=== PATIENT | female | born 1960 | race Caucasian/White ===

== ENCOUNTER → 2020-03-11 17:51 | Outpatient (CLI) | payer OTHER, SELFPAY ==
--- NOTE | ~2020-03-11 | DEXA_ITS ---
Bone Density Report Name: Chery Flores Age: 59 Sex: Female Ethnicity: White Date of : 1960 Indication: postmenopausal; screening for osteoporosis; height loss; Referring Provider: SIRISHA MENDEZ Study: Bone densitometry was performed. Exam Date: March 11, 2020 Accession number: [id number] Bone Density: Region BMD T-score Z-score Classification AP Spine (L1-L4) 1.407 3.3 4.8 Normal Femoral Neck (Left) 0.848 0.0 1.3 Normal Total Hip (Left) 1.041 0.8 1.8 Normal Femoral Neck (Right) 0.837 -0.1 1.2 Normal Total Hip (Right) 1.078 1.1 2.1 Normal Total Hip Mean 1.060 1.0 2.0 Normal World Health Organization criteria for BMD impression classify patients as: Normal (T-score at or above -1.0), Osteopenia (T-score between -1.0 and -2.5), or Osteoporosis (T-score at or below -2.5). 10-year Fracture Risk: FRAX not reported because: All T-scores for Spine Total, Hip Total, Femoral Neck at or above -1.0 Clinical Information Provided by Patient: Has 3 or more alcoholic drinks per day Has used the following medications: Vitamin D, Calcium, MTV, LEVOTHYROXINE Patient maximum height was 64.25 Menopause Age: 46 No regular weight bearing exercise Drinks caffeinated beverages Onset of menses at age 14 Number of children 0 Impression: The patient has normal bone mass. The patient has risk factors, including: excessive alcohol use. Discussion: BONE DENSITY IS ABOVE THE MINIMUM DESIRABLE LEVEL AT ALL SKELETAL SITES TESTED. This patient?s bone mineral density is above the minimum desirable level (T-score -1.0 or better) at all sites measured. The patient should follow a healthful lifestyle (good nutrition with adequate calcium and vitamin D, and appropriate weight-bearing exercise). Follow-Up: Consider repeating this study in 5 years or sooner if there is some new clinical indication. Reported by: LESLEE on 03/11/2020 6:42:00 PM. Reviewed, dictated and finalized at location AVerna SUMMERS
== END ==
PROVIDERS: PCP Family Medicine; Visit Provider Family Medicine
DX: Z78.0 Asymptomatic menopausal state (principal)
CPT/HCPCS: 77080

== ENCOUNTER 2021-04-07 17:37 | Emergency (ER) | payer OTHER, SELFPAY ==
--- NOTE | ~2021-04-07 | XR_ITS ---
EXAMINATION: XR chest 1V portable EXAM DATE: 04/07/2021 20:38 INDICATION: Cough, transient alteration of awareness. TECHNIQUE: Portable AP frontal chest x-ray was obtained. There is no prior study for comparison. FINDINGS: The lungs are clear. There are no pleural effusions. The cardiomediastinal silhouette is within normal limits. There is no pneumothorax suspected. The bones and soft tissues are unremarkab le. IMPRESSION: No acute cardiopulmonary findings. Reviewed, dictated and finalized at location A. CTOR OF SEARCH ENGINE MARKETING
[2021-04-07 17:41] VITALS: BP 161/88; PULSE 92; RESP 14; TEMP 36.6; O2SAT 97
[2021-04-07 17:49] VITALS: BP 146/97; PULSE 95; RESP 18
--- NOTE | 2021-04-07 18:20 | ED.PSYCH ---
HPI - Psych General Chief Complaint: Psychiatric Symptoms Stated Complaint: psych Time Seen by Provider: 04/07/21 17:59 Source: patient Mode of arrival: ambulatory Limitations: clinical condition History of Present Illness HPI Narrative: Patient is a 60-year-old female brought in by a friend due to manic episodes that started 1 week ago. Patient has a history of bipolar, on 4 medications, and states that she has been taking them regularly. Patient denies any auditory visual hallucinations. Patient denies any suicidal homicidal thoughts. Patient states that she has an appointment next week to see her psychiatrist Dr. Antunez. Related Data Home Medications Medication Instructions Recorded Confirmed clonazepam 1 mg PO HS 04/07/21 04/07/21 divalproex 500 mg PO BID 04/07/21 04/07/21 levothyroxine 25 mcg PO DAILY 04/07/21 04/07/21 risperidone 1 mg PO BID 04/07/21 04/07/21 Allergies Allergy/AdvReac Type Severity Reaction Status Date / Time No Known Allergies Allergy Verified 04/07/21 19:44 Review of Systems Review of Systems: All systems reviewed & are unremarkable except as noted in HPI and below Constitutional: Constitutional: Denies body ache(s), Denies chills, Denies excessive sweating, Denies fatigue, Denies fever(s), Denies headache(s), Denies lethargy, Denies malaise, Denies weakness and Denies weight loss Eyes: Eyes: Denies blurry vision, Denies change in vision and Denies loss of vision ENT: Denies dizziness, Denies ear discharge, Denies headache(s), Denies lip swelling, Denies epistaxis, Denies nasal congestion, Denies neck pain, Denies throat swelling and Denies tongue swelling Cardiovascular: Cardiovascular: Denies chest pain, Denies chest pain at rest, Denies chest pain with activity, Denies diaphoresis, Denies rapid heart rate, Denies edema, Denies irregular heart rhythm, Denies lightheadedness, Denies palpitations, Denies dyspnea and Denies dyspnea on exertion Respiratory: Respiratory: Denies chest congestion, Denies cough, Denies hemoptysis, Denies dyspnea and Denies dyspnea on exertion Gastrointestinal: Gastrointestinal: Denies abdominal pain, Denies melena, Denies hematochezia, Denies diarrhea, Denies nausea, Denies vomiting and Denies hematemesis Musculoskeletal: Musculoskeletal: Denies abnormal gait, Denies deformity, Denies joint swelling, Denies limited range of motion, Denies neck pain and Denies numbness Neurologic: Denies Abnormal speech present, Denies abnormal gait, Denies confusion, Denies dizziness, Denies headache(s), Denies focal weakness, Denies loss of vision, Denies numbness, Denies Other visual disturbances, Denies Sensory deficit (Neuro) and Denies weakness Psychiatric: Psychiatric: Denies confusion, Denies depression, Denies auditory hallucinations, Denies homicidal ideation and Denies suicidal ideation Endocrine: Endocrine: Denies cold intolerance, Denies excessive sweating, Denies fatigue, Denies heat intolerance and Denies palpitations Hematologic/Lymphatic: Hematologic/Lymphatic: Denies easy bleeding and Denies easy bruising Allergic/Immunologic: Allergic/Immunologic: Denies lip swelling, Denies throat swelling and Denies tongue swelling PMFSH Past Medical History Medical History Bipolar 1 disorder Cat scratch of right lower leg Cellulitis of leg without foot, right Chronic kidney disease (CKD) stage G3a/A1, moderately decreased glomerular filtration rate (GFR) between 45-59 mL/min/1.73 square meter and albuminuria creatinine ratio less than 30 mg/g Hyperlipidemia Hypothyroidism (acquired) Lateral epicondylitis of right elbow Low back pain Family History Family History Sibling Breast cancer Grandparent Breast cancer Father Thyroid ca Social History Social History Social History: Single Smoking status: Nev
[2021-04-07 18:27] LABS: Hematocrit 37.8 % (37.0-47.0); Hemoglobin 12.2 g/dL (12.0-15.0); Mean Corpuscular HGB Conc 32.3 g/dl (32-36); Mean Corpuscular Volume 93.1 fl (80-100); Mean Platelet Volume 9.8 fl (7.4-10.4); Platelet Count Result 203 k/mm3 (150-375); Red Blood Count 4.06 M/mm3 (4.2-5.4); Red Cell Distribution Width 12.8 % (11.5-14.5); White Blood Count 23.1 K/mm3 (4.5-10.0)
[2021-04-07] MEDS: OLANZapine 10 MG INJ VIAL IM (18:37)
[2021-04-07 18:38] LABS: Anion Gap 8 mmol/L (8-16); Blood Urea Nitrogen 23 mg/dL (7-17); Calcium 9.6 mg/dL (8.4-10.2); Carbon Dioxide 30 mmol/L (22-30); Chloride 101 mmol/L (98-107); Estimated Glomerular Filt Rate > 60; Glucose 90 mg/dL (65-110); Potassium 3.6 mmol/L (3.4-5.0); Sodium 139 mmol/L (137-145)
[2021-04-07] MEDS: WATER, STERILE FOR INJECTION 10 ML VIAL XX (18:38)
[2021-04-07] MEDS: diphenhydrAMINE HCl INJ 50 MG/ML VIAL 25 MG IM (18:38)
[2021-04-07 19:08] LABS: Add Urine Microscopic? NO; Appearance Urine Clear (Clear); Bilirubin Urine Negative (Negative); Blood Urine Negative (Negative); Color Urine Yellow (Yellow); Glucose Urine UA Negative (Negative); Ketones Urine Negative (Negative); Leukocyte Esterase Ur Negative LEU/UL (Negative); Nitrate Urine Negative (Negative); Protein Urine Negative (Negative); Specific Grav Ur 1.012 (1.001-1.035); Urobilinogen Urine Negative mg/dL (<2.0)
[2021-04-07 19:12] LABS: Acetaminophen < 10 ug/mL (10-30); Ethanol < 10 mg/dL (<10); Salicylate < 1.0 mg/dL (2-20)
[2021-04-07 19:14] LABS: Band Neutrophils Percent 0 % (0-6); Neutrophils Absolute Manual 6.46 K/mm3 (1.7-7.2); Neutrophils Percent Manual 28 % (46-73); Total Cells Counted 100
[2021-04-07 19:15] LABS: Basophils Percent Manual 0 % (0-1); Eosinophils Percent Manual 0 % (0-4); Lymphocytes Absolute Manual 15.47 K/mm3 (1.1-4.5); Lymphocytes Percent Manual 67 % (18-44); Metamyelocytes Percent 0 %; Monocytes Absolute Manual 1.15 K/mm3 (0.1-0.90); Monocytes Percent Manual 5 % (3-9); Myelocytes Percent 0 %; Platelet Estimate Adequate (Adequate); Promyelocytes Percent 0 %
[2021-04-07 19:40] VITALS: BP 136/84; PULSE 80; RESP 16; O2SAT 99
[2021-04-07 20:12] LABS: Amphetamine Screen Urine Negative (Negative); Barbiturate Screen Urine Negative (Negative); Benzodiazepines Screen Urine Negative (Negative); Cannabinoid Screen Urine Positive (Negative); Cocaine Screen Urine Negative (Negative); Methadone Screen Urine Negative (Negative); Opiate Screen Urine Negative (Negative); Phencyclidine Screen Urine Negative (Negative)
[2021-04-07 21:30] VITALS: BP 148/90; PULSE 94; RESP 18; O2SAT 99
[2021-04-07] MEDS: LORazepam (*CRX) 1 MG TABLET PO (21:30)
[2021-04-08 09:10] LABS: SARS-CoV-2 RNA PCR Negative
== END 2021-04-08 04:41 | disposition home or self-care (01) ==
PROVIDERS: Emergency Provider Emergency Medicine; PCP Family Medicine
DX: F31.9 Bipolar disorder, unspecified (principal); Z20.822 Contact with and (suspected) exposure to COVID-19; N18.31 Chronic kidney disease, stage 3a; E78.5 Hyperlipidemia, unspecified; E03.9 Hypothyroidism, unspecified
CPT/HCPCS: 36415; 71045; 80048; 80307; 81003; 84443; 85025; 96372; 99284; A9270; C9803; J1200; U0003; U0005

== ENCOUNTER → 2022-03-20 12:33 | Outpatient (CLI) | payer OTHER, SELFPAY ==
--- NOTE | ~2022-03-20 | MM_ITS ---
EXAMINATION: MM screening rachael BI w anat HISTORY: Screening TECHNIQUE: Craniocaudal and mediolateral oblique 3-D tomosynthesis images were obtained and synthetic 2-D images were generated. CAD analysis was submitted and interpreted. COMPARISON: No prior mammogram is available for comparison at this institution. BREAST PARENCHYMAL COMPOSITION: There are scattered areas of fibroglandular density. FINDINGS: There is no evidence of suspicious mass, calcification, or architectural distortion to sugg est malignancy in either breast. There has been no suspicious interval change. IMPRESSION: 1. No mammographic evidence of malignancy. 2. Recommend routine screening mammography in one year. BI-RADS Category 1: Negative Reviewed, dictated and finalized at location A. MIXER MACHINE
== END ==
PROVIDERS: PCP Family Medicine; Visit Provider Physician Assistant
DX: Z12.31 Encounter for screening mammogram for malignant neoplasm of breast (principal)
CPT/HCPCS: 77063; 77067

== ENCOUNTER → 2022-04-24 12:53 | Outpatient (CLI) | payer OTHER, SELFPAY ==
--- NOTE | ~2022-04-24 | US_ITS ---
EXAMINATION: US abdomen complete DATE: 04/24/2022 14:14 INDICATION: R74.8 - Abnormal levels of other serum enzymes TECHNIQUE: Multiple grayscale and Doppler ultrasound images of the abdomen were obtained. COMPARISON: Pelvic ultrasound, same date. FINDINGS: The visualized portions of the pancreas are normal. The liver is normal with normal echogen icity and echotexture. No surface nodularity. Normal hepatopetal flow in the main portal vein. The ga llbladder is normal with no abnormal wall thickening, pericholecystic fluid or stones. The common alonzo e duct measures 3 mm. There was no sonographic Garcia sign. The visualized portions of the aorta and inferior vena cava are normal. The right kidney measures 9.8 x 4.2 x 5.3. The left kidney measures 7.5 x 3.7 x 3.5. The kidneys demo nstrate normal parenchymal echogenicity. There is no hydronephrosis. The spleen is normal in appearan ce and measures 10.7 cm. Incidental note of a circumscribed large cystic and minimally septated rough ly midline lower abdominal mass, likely corresponding to the palpable abnormality, possibly ovarian i n origin, measuring at least 14.6 cm. IMPRESSION: Normal abdominal ultrasound findings. Incidental 14.6 cm cystic pelvic mass. [facility]. Reviewed, dictated and finalized at location K. OVEN TENDER IMPRESSION: Normal abdominal ultrasound findings. Incidental 14.6 cm cystic pelvic mass. Pl ease refer to the concurrent pelvic ultrasound report for additional detail.
--- NOTE | ~2022-04-24 | US_ITS ---
EXAMINATION: US pelvic complete DATE: 04/24/2022 14:14 INDICATION: Pelvic mass felt on exam, history of leukemia, currently in remission. TECHNIQUE: Multiple transabdominal and endovaginal sonographic images of the pelvis were obtained. COMPARISON: Ultrasound abdomen, same date. FINDINGS: Uterus: 6.1 x 3.1 x 4.5 cm. Endometrial complex measures mm. Right Ovary: Smoothly marginated, multilocular 13.5 x 9.3 x 13.9 cm right adnexal mass with irregular thick septum, solid components measuring up to 3.3 cm, color score 2, no internal projections. A lar elizabeth overall measurement of 14.6 cm was obtained in the concurrent abdominal ultrasound and that value will be used for overall size. Left Ovary: Not visualized, no left adnexal abnormality detected. There is no free fluid in the pelvis. IMPRESSION: 14.6 cm right adnexal mass, presumably ovarian in origin, high risk (ORADS 5), recommend Gynecology-O ncology referral. Left ovary not visualized. Reviewed, dictated and finalized at location K. ET FILLER IMPRESSION: 14.6 cm right adnexal mass, presumably ovarian in origin, high risk (ORADS 5), recommend Gynecology-Oncology referral. Left ovary not visualized.
== END ==
PROVIDERS: PCP Family Medicine; Visit Provider Nurse Practitioner Gerontology
DX: R74.8 Abnormal levels of other serum enzymes (principal); R19.00 Intra-abdominal and pelvic swelling, mass and lump, unspecified site
CPT/HCPCS: 76700; 76856

== ENCOUNTER 2022-06-19 00:56 | Day surgery (SDC) | payer OTHER, SELFPAY ==
[2022-06-07 12:57] VITALS: BMI 29.2
[2022-06-19 11:47] VITALS: BP 149/80; PULSE 67; RESP 18; TEMP 36.2; O2SAT 99
[2022-06-19] MEDS: LACTATED RINGERS 1,000 ML 150 ML IV CONT (12:00)
--- NOTE | 2022-06-19 12:08 | WPDANESEPPF ---
Anes - Initial Pre Proc Eval Procedure: Operation Date: 06/19/22 13:00 Proposed Procedures p Colonoscopy - Marcelino Membreno MD Date/Time: 06/19/22 12:08 Surgeon: Marcelino Membreno MD Pre Op Diagnosis: diarrhea Patient Data Age: 61 Gender: F Height: 1.57 m Weight: 72.8 kg Last Vital Signs Temp 97.1 F L 06/19/22 11:47 Pulse 67 06/19/22 11:47 Resp 18 06/19/22 11:47 BP 149/80 H 06/19/22 11:47 Pulse Ox 99 06/19/22 11:47 O2 Del Method Room Air 06/19/22 11:47 Allergies Allergy/AdvReac Type Severity Reaction Status Date / Time No Known Allergies Allergy Verified 06/19/22 11:45 Home Medications Medication Instructions Recorded Confirmed Type clonazepam 1 mg tablet 1 mg PO HS 04/07/21 06/19/22 History divalproex 500 mg tablet,extended 500 mg PO BID 04/07/21 06/19/22 History release 24 hr (Depakote ER) risperidone 1 mg tablet (Risperdal) 1 mg PO BID 04/07/21 06/19/22 History levothyroxine 25 mcg tablet 25 mcg PO DAILY #90 tabs 12/26/21 06/19/22 Rx Patient hx anesthesia problems: none Family hx anesthesia problems: none Results Review: All pre-operative results and documents have been reviewed as part of the pre-operative evaluation. [facility] Past Medical History Medical History Bipolar 1 disorder Cat scratch of right lower leg Cellulitis of leg without foot, right Chronic kidney disease (CKD) stage G3a/A1, moderately decreased glomerular filtration rate (GFR) between 45-59 mL/min/1.73 square meter and albuminuria creatinine ratio less than 30 mg/g Hyperlipidemia Hypothyroidism (acquired) Lateral epicondylitis of right elbow Low back pain Family History Family History Sibling Breast cancer Grandparent Breast cancer Father Thyroid ca Social History Social History Social History: Boyfriend Smoking status: Former smoker Tobacco type: cigarettes Second hand tobacco smoke exposure: No Alcohol intake: current Alcohol use details: Occasionally Substance use: never Substance use type: does not use Living arrangements: with family Additional living arrangements comments: pt lives with significant other Occupation/Education: occupation Additional occupation/education comments: 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 Gender identity (if verbalized by the patient): Female Sexual Orientation (if Verbalized by the Patient): Straight or Heterosexual Anes - Eval Final PreProcedure Day of Procedure 06/19/22 12:08 Patient weight: normal Heart: regular rate and rhythm Lungs: clear to auscultation Airway: Mallampati scale class II Neurological: alert and oriented Last oral intake: >/= 8 hours ASA classification: II Emergent: no Anesthetic plan: proceed Anesthesia type and monitoring: general GIVS and standard monitoring Results Review: All pre-operative results and documents have been reviewed as part of the pre-operative evaluation. Informed Consent: The patient's anesthetic plan and its attendant risks and benefits were discussed with the patient/family/POA. Questions were solicited and answers provided to the satisfaction of the patient/family/POA.
--- NOTE | 2022-06-19 12:47 | PM.HPGS ---
History of Present Illness History of Present Illness Consent: Risks, benefits, and alternatives have been discussed and questions answered. Patient agrees to proceed with procedure. Chief complaint: diarrhea Narrative: Chery Flores is a 61 year old female here for screening colonoscopy, last one over 10 years ago Review of Systems Constitutional: Constitutional: Denies headache(s) and Denies weakness Eyes: Eyes: Denies blurry vision ENT: Reports Normal hearing present, Denies headache(s) and Denies neck pain Cardiovascular: Cardiovascular: Denies chest pain and Denies dyspnea Respiratory: Respiratory: Denies dyspnea Gastrointestinal: Gastrointestinal: Reports no additional gastrointestinal complaints Genitourinary: Genitourinary: Denies dysuria Musculoskeletal: Musculoskeletal: Denies neck pain Integumentary/Breasts: Skin/Breast: Denies dry skin Neurologic: Reports Normal hearing present, Denies headache(s) and Denies weakness Psychiatric: Psychiatric: Denies anxiety Endocrine: Endocrine: Denies change in body appearance Hematologic/Lymphatic: Hematologic/Lymphatic: Denies easy bleeding Allergic/Immunologic: Allergic/Immunologic: Denies urticaria PMFSH Past Medical History Medical History (Updated 06/19/22 @ 12:59 by Marcelino Membreno MD) Bipolar 1 disorder Cat scratch of right lower leg Cellulitis of leg without foot, right Chronic kidney disease (CKD) stage G3a/A1, moderately decreased glomerular filtration rate (GFR) between 45-59 mL/min/1.73 square meter and albuminuria creatinine ratio less than 30 mg/g Colon cancer screening Hyperlipidemia Hypothyroidism (acquired) Lateral epicondylitis of right elbow Low back pain Family History Family History Sibling Breast cancer Grandparent Breast cancer Father Thyroid ca Social History Social History Social History: Boyfriend Smoking status: Former smoker Tobacco type: cigarettes Second hand tobacco smoke exposure: No Alcohol intake: current Alcohol use details: Occasionally Substance use: never Substance use type: does not use Living arrangements: with family Additional living arrangements comments: pt lives with significant other Occupation/Education: occupation Additional occupation/education comments: 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 Gender identity (if verbalized by the patient): Female Sexual Orientation (if Verbalized by the Patient): Straight or Heterosexual Meds Home Medications and Allergies Home Medications Medication Instructions Recorded Confirmed Type clonazepam 1 mg tablet 1 mg PO HS 04/07/21 06/19/22 History divalproex 500 mg tablet,extended 500 mg PO BID 04/07/21 06/19/22 History release 24 hr (Depakote ER) risperidone 1 mg tablet (Risperdal) 1 mg PO BID 04/07/21 06/19/22 History levothyroxine 25 mcg tablet 25 mcg PO DAILY #90 tabs 12/26/21 06/19/22 Rx Allergies Allergy/AdvReac Type Severity Reaction Status Date / Time No Known Allergies Allergy Verified 06/19/22 11:45 Vital Signs Vital Signs - 24 hr 06/19/22 11:47 Temperature 97.1 F L Pulse Rate 67 Respiratory Rate 18 Blood Pressure 149/80 H Pulse Oximetry 99 Oxygen Delivery Room Air Exam Const: General: comfortable and no acute distress HENMT: Face/Nose/Sinus: Normal nares present Eyes: General: appearance normal, both eyes and all related structures Neck: Neck: no JVD Resp: Auscultation: clear to auscultation bilaterally Cardio: Rate: regular rate Rhythm: regular rhythm GI: Inspection: non-distended GI Palp: Yes Soft to palpation Skin: General skin exam: normal color Neuro: General: gait normal Speech: normal speech Extrem: General: normal to inspection Psych: Mental Status: mental status grossly normal Assessment and Plan Assessment and plan (1) Colon cancer nj
[2022-06-19 13:03] VITALS: BP 109/72; PULSE 60; RESP 16; O2SAT 99
[2022-06-19 13:13] VITALS: BP 126/80; PULSE 58; RESP 18; O2SAT 99
[2022-06-19 13:23] VITALS: BP 135/64; PULSE 56; RESP 16; O2SAT 100
== END 2022-06-19 13:32 | disposition home or self-care (01) ==
PROVIDERS: PCP Family Medicine; Visit Provider Internal Medicine Gastroenterology
PROC: 0DJD8ZZ Inspection of Lower Intestinal Tract, Via Natural or Artificial Opening Endoscopic (ICD-10-PCS; CPT 45378; principal; 2022-06-19 13:00)
DX: Z12.11 Encounter for screening for malignant neoplasm of colon (principal); K57.30 Diverticulosis of large intestine without perforation or abscess without bleeding; K64.8 Other hemorrhoids; N18.31 Chronic kidney disease, stage 3a; E78.5 Hyperlipidemia, unspecified; E03.9 Hypothyroidism, unspecified; F31.9 Bipolar disorder, unspecified; Z87.891 Personal history of nicotine dependence
CPT/HCPCS: 45378; J2704; J7120

== ENCOUNTER → 2023-04-23 11:51 | Outpatient (CLI) | payer OTHER, SELFPAY ==
--- NOTE | ~2023-04-23 | MM_ITS ---
EXAMINATION: MM screening rachael BI w anat HISTORY: Screening mammogram, family history of breast cancer in her sister. TECHNIQUE: Craniocaudal and mediolateral oblique 3-D tomosynthesis images were obtained and synthetic 2-D images were generated. CAD analysis was submitted and interpreted. COMPARISON: 03/20/2022 BREAST PARENCHYMAL COMPOSITION: There are scattered areas of fibroglandular density. FINDINGS: No suspicious mass, calcification, or architectural distortion are identified in either alvaro ast to suggest malignancy. There has been no suspicious interval change. IMPRESSION: 1. No mammographic evidence of malignancy. 2. Recommend routine screening mammography in one year. BI-RADS Category 1: Negative Reviewed, dictated and finalized at location A. N RESOURCES TRAINEE
== END ==
PROVIDERS: PCP Physician Assistant; Visit Provider Physician Assistant
DX: Z12.31 Encounter for screening mammogram for malignant neoplasm of breast (principal)
CPT/HCPCS: 77063; 77067

== ENCOUNTER 2024-04-25 11:24 | Outpatient (CLI) | payer MEDICARE, SELFPAY ==
--- NOTE | ~2024-04-25 | MM_ITS ---
EXAMINATION: MM screening rachael BI w anat HISTORY: Screening mammogram, family history of breast cancer in her sister. TECHNIQUE: Craniocaudal and mediolateral oblique 3-D tomosynthesis images were obtained and synthetic 2-D images were generated. CAD analysis was submitted and interpreted. COMPARISON: 04/23/2023, 03/20/2022 BREAST PARENCHYMAL COMPOSITION:Not Dense. There are scattered areas of fibroglandular density. FINDINGS: There is more conspicuous masses or possibly lymph node at the outer, slightly upper left b reast. Otherwise, no interval change. No suspicious parenchymal abnormality of the right breast. No s uspicious mammographic calcifications. IMPRESSION: More conspicuous group masses or possibly lymph node at the outer, slightly upper left breast. Spot c ompression views and ultrasound are recommended for further evaluation. BI-RADS Category 0: Incomplete: Needs additional imaging evaluation. Reviewed, dictated and finalized at location . BODY TECHNICIAN IMPRESSION: More conspicuous group masses or possibly lymph node at the outer, slightly upp er left breast. Spot compression views and ultrasound are recommended for furth er evaluation. BI-RADS Category 0: Incomplete: Needs additional imaging evaluation.
== END 2024-04-25 11:25 | disposition home or self-care (01) ==
PROVIDERS: PCP Physician Assistant; Visit Provider Physician Assistant
DX: Z12.31 Encounter for screening mammogram for malignant neoplasm of breast (principal); R92.8 Other abnormal and inconclusive findings on diagnostic imaging of breast
CPT/HCPCS: 77063; 77067

== ENCOUNTER 2024-05-02 07:49 | Outpatient (CLI) | payer MEDICARE, SELFPAY ==
--- NOTE | ~2024-05-02 | MMUS_ITS ---
EXAMINATION: US breast LT limited, MM diagnostic rachael LT w anat HISTORY: Follow-up left breast masses TECHNIQUE: Additional 3-D tomosynthesis images of the left breast were performed and synthetic 2-D im ages were generated. CAD analysis was submitted and interpreted. High resolution Limited left breast ultrasound was performed. COMPARISON: Comparison to multiple prior studies sequentially, with oldest reviewed study dated 03/02. BREAST PARENCHYMAL COMPOSITION: Not dense: There are scattered areas of fibroglandular density. FINDINGS: MAMMOGRAPHIC FINDINGS: There is a cluster of small masses in the upper outer quadrant of the left breast, middle third. Ther e are no suspicious calcifications or architectural distortion. ULTRASOUND: Complete US of all 4 quadrants of the breast/s and retroareolar region was reviewed. There is a clust er of cysts at 2:00, 6 cm from the nipple, largest measuring 5 mm. No suspicious masses to suggest ma lignancy. IMPRESSION: 1. In the area of mammographic concern there is a cluster of small cysts measuring 5 mm or less. No e vidence for malignancy in the left breast. 2. Routine yearly screening mammogram and regular clinical breast examination are recommended. BI-RADS Category 2: Benign finding(s). Reviewed, dictated and finalized at location A. INGS MAN IMPRESSION: 1. In the area of mammographic concern there is a cluster of small cysts measur ing 5 mm or less. No evidence for malignancy in the left breast. 2. Routine yearly screening mammogram and regular clinical breast examination a re recommended. BI-RADS Category 2: Benign finding(s).
== END 2024-05-02 07:50 | disposition home or self-care (01) ==
LOC: MICIMG 07:49
PROVIDERS: PCP Physician Assistant; Visit Provider Student in an Organized Health Care Education/Training Program
DX: R92.8 Other abnormal and inconclusive findings on diagnostic imaging of breast (principal)
CPT/HCPCS: 76642; 77061; 77065; G0279

== ENCOUNTER 2025-02-13 08:25 | Outpatient (CLI) | payer MEDICARE, MEDICAID, SELFPAY ==
--- NOTE | ~2025-02-13 | DEXA_ITS ---
Bone Density Report Name: BEL LANCASTER Age: 64 Sex: Female Ethnicity: White Date of : 1960 Indication: postmenopausal; screening for osteoporosis; height loss; cancer; hysterectomy; Referring Provider: SARAH CONNELL Study: Bone densitometry was performed. Exam Date: February 13, 2025 Accession number: [id number] Bone Density: Region BMD T-score Z-score Classification AP Spine(L1-L4) 1.379 3.0 4.9 Normal Femoral Neck (Left) 0.787 -0.6 1.0 Normal Total Hip (Left) 0.925 -0.1 1.2 Normal Femoral Neck (Right) 0.805 -0.4 1.2 Normal Total Hip (Right) 0.988 0.4 1.7 Normal Total Hip Mean 0.956 0.2 1.5 Normal World Health Organization criteria for BMD impression classify patients as: Normal (T-score at or above -1.0), Osteopenia (T-score between -1.0 and -2.5), or Osteoporosis (T-score at or below -2.5). 10-year Fracture Risk: FRAX not reported because: All T-scores for Spine Total, Hip Total, Femoral Neck at or above -1.0 Previous Exams: -- Region Exam Age BMD T-score BMD Change BMD Change Date g/cm2 vs Baseline vs Previous -- AP Spine (L1-L4) 02/13/2025 64 1.379 3.0 -1.9%* -1.9%* 03/11/2020 59 1.407 3.3 Total Hip(Left) 02/13/2025 64 0.925 -0.1 -11.2%* -11.2%* 03/11/2020 59 1.041 0.8 Total Hip(Right) 02/13/2025 64 0.988 0.4 -8.3%* -8.3%* 03/11/2020 59 1.078 1.1 -- *Denotes significance at 95% confidence level, LSC for AP Spine = 0.022 g/cm2, LSC for Total Hip = 0.027 g/cm2 Clinical Information Provided by Patient: Has used the following medications: Calcium Has the following medical conditions: Cancer, Hysterectomy, leukemia Patient maximum height was 63 Menopause Age: 46 No regular weight bearing exercise Drinks caffeinated beverages Onset of menses at age 12 Number of children 0 Impression: The patient has normal bone mass. The BMD for the AP Spine (L1-L4) decreased, changing by -1.9% since the last DXA exam. The BMD for the Total Hip(Left) decreased, changing by -11.2% since the last DXA exam. The BMD for the Total Hip(Right) decreased, changing by -8.3% since the last DXA exam. Discussion: BONE DENSITY IS ABOVE THE MINIMUM DESIRABLE LEVEL AT ALL SKELETAL SITES TESTED. This patient?s bone mineral density is above the minimum desirable level (T-score -1.0 or better) at all sites measured. The patient should follow a healthful lifestyle (good nutrition with adequate calcium and vitamin D, and appropriate weight-bearing exercise). Follow-Up: Consider repeating this study in 3 to 4 years to reassess this patient's status, or sooner if there is some new clinical indication. Reported by: LESLEE on 02/13/2025 8:50:00 AM. Reviewed, dictated and finalized at location A.
== END 2025-02-13 08:26 | disposition home or self-care (01) ==
LOC: MICIMG 08:26
PROVIDERS: PCP Family Medicine; Visit Provider Physician Assistant
DX: Z78.0 Asymptomatic menopausal state (principal)
CPT/HCPCS: 77080